=== PATIENT | female | born 1955 | race Caucasian/White ===

== ENCOUNTER 2017-11-09 07:38 | Day surgery (SDC) | payer BC ==
[2017-11-09] MEDS ORDERED: CEFAZOLIN 1 GM/50 ML (PMX) 50 ML IVPB (08:00)
[2017-11-09] MEDS ORDERED: SOD CHLORIDE 0.9% 1,000 ML IV (08:00)
[2017-11-09] MEDS: CEFAZOLIN 1 GM/50 ML (PMX) 50 ML IVPB (10:25)
[2017-11-09] MEDS: POLYMYXIN/BACITRACIN 1L IRRIG IRR (11:25)
[2017-11-09] MEDS: LIDOCAINE 1%/EPI 30 ML INJ (11:25)
[2017-11-09] MEDS: MIDAZOLAM 1 MG/ML 2 ML INJ (11:25)
[2017-11-09] MEDS: FENTAnyl 50 MCG/ML VIAL (11:25)
[2017-11-09] MEDS ORDERED: HYDROCODONE/APAP (5/325) TAB PO (11:30)
[2017-11-09] MEDS: HEPARIN 1000 UNITS/ML 10 ML INJ (11:40)
== END 2017-11-09 14:20 | disposition home or self-care (01) ==
LOC: SDS 07:38
DX: C85.10 Unspecified B-cell lymphoma, unspecified site (principal)
CPT/HCPCS: 36561; 76942; 93306

== ENCOUNTER 2018-09-26 10:11 | Day surgery (SDC) | payer BC ==
[2018-09-26] MEDS ORDERED: PROPOFOL 60 ML (11:50)
== END 2018-09-26 12:54 | disposition home or self-care (01) ==
LOC: GIL 10:11
DX: Z12.11 Encounter for screening for malignant neoplasm of colon (principal); D12.5 Benign neoplasm of sigmoid colon; K64.8 Other hemorrhoids
CPT/HCPCS: 45380; 88305